=== PATIENT | male | born 1930 | race Caucasian/White ===

== ENCOUNTER → 2017-04-13 | Outpatient (CLI) | payer MEDICARE | LOC: CT 04-12 08:00 → KOH-I 08:00 | DX: R19.7 Diarrhea, unspecified (principal); K63.9 Disease of intestine, unspecified; R10.9 Unspecified abdominal pain; R11.0 Nausea; K31.89 Other diseases of stomach and duodenum | CPT/HCPCS: 74177; Q9962 ==